=== PATIENT | female | born 1950 | race Caucasian/White ===

== ENCOUNTER 2017-08-10 18:34 | Emergency (ER) | payer MEDICARE, OTHER ==
[~2017-08-10] VITALS: Ht 162.6 cm; Wt 72.9 kg
[2017-08-10 18:47] VITALS: BP 126/62; PULSE 83; RESP 16; TEMP 98; O2SAT 98
--- NOTE | 2017-08-10 19:07 | PD ---
HPI Chief Complaint: Laceration/Skin Injury Time Seen by Provider: 18:59 Travel History International Travel<30 days: No Contact w/Intl Traveler<30days: No Traveled to known affect area: No History of Present Illness HPI 66-year-old female presents emergency department for evaluation of a laceration to her left hand that occurred as she was working on [employer] today. Patient states that she was using a tile instrument and accidentally slipped and cut her right hand. Patient is left-handed patient says that she has been bleeding and this has become annoying. She denies any numbness tingling. Patient denies any significant pain. Denies weakness of the hand. Denies medication use except for baby aspirin daily. PFSH Past Medical History Hx Anticoagulant Therapy: Yes (ASA) Social History Tobacco Use: No Allergies-Medications (Allergen,Severity, Reaction): Coded Allergies: Iodinated Contrast- Oral and IV Dye (Verified Allergy, Severe, Headache, ) Reported Meds & Prescriptions Reported Meds & Active Scripts Active No Active Prescriptions or Reported Medications Review of Systems Except as stated in HPI: all other systems reviewed are Neg Physical Exam Narrative GENERAL: Well-nourished, well-developed patient. SKIN: Focused skin assessment warm/dry. Left hand between the second and third MCP-1 cm laceration with surrounding ecchymosis. Neurovascularly intact. Grade 5/5 strength of the fingers and hand. HEAD: Normocephalic. EYES: No scleral icterus. No injection or drainage. NECK: Supple, trachea midline. No JVD or lymphadenopathy. CARDIOVASCULAR: Regular rate and rhythm without murmurs, gallops, or rubs. RESPIRATORY: Breath sounds equal bilaterally. No accessory muscle use. MUSCULOSKELETAL: No cyanosis, or edema. BACK: Nontender without obvious deformity. No CVA tenderness. Data Data Last Documented VS Vital Signs Date Time Temp Pulse Resp B/P (MAP) Pulse Ox O2 Delivery O2 Flow Rate FiO2 08/10/17 18:47 98.0 83 16 126/62 (83) 98 Orders Orders Tetanus/Diphtheria Tox Adult (Tetanus/Di (08/10/17 19:15) Lidocaine 2% Inj (Xylocaine 2% Inj) (08/10/17 19:15) Lidocaine 1% Inj (Xylocaine 1% Inj) (08/10/17 19:19) MDM Medical Decision Making Medical Screen Exam Complete: Yes Emergency Medical Condition: Yes Differential Diagnosis Right hand laceration, avulsion, abrasion Narrative Course 66-year-old female presents emergency department for evaluation of a laceration to her left hand that occurred as she was working on [employer] today. Patient states that she was using a tile instrument and accidentally slipped and cut her right hand. Patient is left-handed patient says that she has been bleeding and this has become annoying. She denies any numbness tingling. Patient denies any significant pain. Denies weakness of the hand. Denies medication use except for baby aspirin daily. Vital signs stable. Laceration repair completed. Patient not show any evidence of tendon or ligament involvement. She did have an area of ecchymosis and small hematoma however this was controlled with pressure. Patient not actively bleeding upon evaluation. Keflex for antibiotic prophylaxis. Patient advised to return to the emergency department or her primary care physician in 7-10 days for suture removal. Advised to watch for signs of infection. Procedures Procedure Narrative LACERATION LOCATION: right MCP interdigit region LENGTH: 1 cm NUMBER OF STITCHES/MAREN: 4 REPAIR: The area of the laceration was prepped with Betadine and sterilely draped. The laceration was infiltrated with 1% lidocaine without epinephrine. The wound was copiously irrigated and explored without evidence of foreign body , tendon injury or neurovascular injury. The wound was closed using 4-0 Prolene. This was a single layer repair. A sterile dressing was applied. The patient was advised to keep the dressing clean and dry. Patient tolerated the procedure well. Diagnosis Primary Impression: Laceration of hand Qualified Codes: S61.411A - Laceration without foreign body of right hand, initial encounter Referrals: Primary Care Physician Additional Instructions: Follow up with your primary care physician within 2-3 days. Keep area clean and dry for 24 hours. After 24 hours, you may bathe as normal but dry the area thoroughly. You may use [id number] triple antibiotic ointments for your injury daily. Change dressings daily. If bleeding starts, apply pressure and elevate the area. If you developed increased redness, swelling, or pain return to the emergency department as this could be a sign of infection. suture removal in 7-10 days Scripts No Active Prescriptions or Reported Meds Disposition: 01 DISCHARGE HOME Condition: Stable Erna Adam Aug 10, 2017 19:07
[2017-08-10] MEDS ORDERED: TETANUS/DIPHTHERIA TOXOID ADULT 0.5 ML VIAL IM ONE (19:15)
[2017-08-10] MEDS ORDERED: LIDOCAINE HCL 2% 20 ML VIAL INFIL ONE (19:15)
[2017-08-10] MEDS ORDERED: LIDOCAINE HCL 1% 20 ML VIAL ONE (19:19)
[2017-08-10] MEDS ORDERED: CEPH-460 PO (19:53)
== END 2017-08-10 20:03 | disposition home or self-care (01) ==
LOC: PHEFT 18:34
DX: S61.412A Laceration without foreign body of left hand, initial encounter (principal); W27.8XXA Contact with other nonpowered hand tool, initial encounter; Y93.89 Activity, other specified; Z23 Encounter for immunization; Z79.82 Long term (current) use of aspirin
CPT/HCPCS: 12001; 90471; 90714

== ENCOUNTER 2017-08-27 10:32 | Emergency (ER) | payer MEDICARE ==
[~2017-08-27] VITALS: Ht 162.6 cm; Wt 71.0 kg
[~2017-08-27 10:32] MED LIST: CEPH-460 PO
[2017-08-27 10:35] VITALS: BP 122/65; PULSE 66; RESP 18; TEMP 97.9; O2SAT 99
--- NOTE | 2017-08-27 11:07 | PD ---
HPI Chief Complaint: Wound/Suture/Staple Re-Check Time Seen by Provider: 11:01 Travel History International Travel<30 days: No Contact w/Intl Traveler<30days: No Traveled to known affect area: No History of Present Illness HPI 66-year-old female presents to the emergency department for suture removal from the left hand. Sutures are placed on August 10, 2017. She states she has not found the time to return to have them removed. She denies any symptoms or complaints. No pain. Mild severity. PFSH Past Medical History Hx Anticoagulant Therapy: Yes (ASA) Diminished Hearing: No ?: Not Past Surgical History Hysterectomy: Yes Tonsillectomy: Yes Social History Alcohol Use: No Tobacco Use: No Substance Use: No Allergies-Medications (Allergen,Severity, Reaction): Coded Allergies: Iodinated Contrast- Oral and IV Dye (Verified Allergy, Severe, Headache, ) Reported Meds & Prescriptions Reported Meds & Active Scripts Active Keflex (Cephalexin) 500 Mg Cap 500 Mg PO Q8H 7 Days Review of Systems Except as stated in HPI: all other systems reviewed are Neg Physical Exam Narrative GENERAL: Well-nourished, well-developed female patient, ambulatory. Afebrile. SKIN: Focused skin assessment warm/dry. Patient has healed laceration with [address] between the second and third MCP joints on the left hand. No cellulitis. No he did have symptoms. No complication. HEAD: Normocephalic. Atraumatic. EYES: No scleral icterus. No injection or drainage. NECK: Supple, trachea midline. No JVD or lymphadenopathy. RESPIRATORY: No accessory muscle use. MUSCULOSKELETAL: No cyanosis, or edema. Data Data Last Documented VS Vital Signs Date Time Temp Pulse Resp B/P (MAP) Pulse Ox O2 Delivery O2 Flow Rate FiO2 08/27/17 10:35 97.9 66 18 122/65 (84) 99 Orders Orders Ed Discharge Order (08/27/17 11:07) [facility] Medical Decision Making Medical Screen Exam Complete: Yes Emergency Medical Condition: Yes Medical Record Reviewed: Yes Differential Diagnosis Suture removal versus dehiscence versus cellulitis Narrative Course 66-year-old female presents to the emergency department for suture removal. 4 sutures removed without difficulty. No evidence of complication. Patient IS stable for discharge. Diagnosis Primary Impression: Visit for suture removal Referrals: Primary Care Physician call for appointment Patient Instructions: General Instructions, Stitches Removal (ED) Additional Instructions: Clean gently with soap and water. Follow-up with your primary care physician as needed. Return to the emergency department for any acute worsening of symptoms. Med/Other Pt SpecificInfo: No Change to Meds Disposition: 01 DISCHARGE HOME Condition: Stable Carey Urbina August 27, 2017 11:07
== END 2017-08-27 11:11 | disposition home or self-care (01) ==
LOC: PHEFT 10:32
DX: Z48.02 Encounter for removal of sutures (principal)
CPT/HCPCS: 99281